=== PATIENT | male | born 1975 | race Two or more races ===

== ENCOUNTER 2018-04-07 11:06 | Emergency (ER) | payer OTHER ==
[~2018-04-07] VITALS: Ht 172.7 cm; Wt 104.3 kg
[2018-04-07] MEDS ORDERED: BACITRACIN TOP OINT 1 UD PKG TOP ONE (11:15)
[2018-04-07] MEDS ORDERED: LIDOCAINE 1% (LOCAL ANESTH.) PF 5ml SDV ID ONE (11:15)
[2018-04-07] MEDS ORDERED: traMADol HCL 50 MG TAB PO ONE (12:30)
[2018-04-07] MEDS ORDERED: TETANUS-DIPTH-ACEL PERTUSSIS 0.5ML SYRG IM ONE (12:30)
[2018-04-07 15:14] VITALS: BP 142/92
== END 2018-04-07 14:32 | disposition home or self-care (01) ==
LOC: ER 11:15
DX: S52.514A Nondisplaced fracture of right radial styloid process, initial encounter for closed fracture (principal); S01.81XA Laceration without foreign body of other part of head, initial encounter; Y08.89XA Assault by other specified means, initial encounter; Y93.89 Activity, other specified; Y99.8 Other external cause status; Y92.148 Other place in prison as the place of occurrence of the external cause
CPT/HCPCS: 12013; 29125; 70450; 72125; 73100; 73200; 90471; 90715